=== PATIENT | female | born 1975 | race Caucasian/White ===

== ENCOUNTER 2018-10-18 08:57 | Outpatient (CLI) | payer OTHER ==
--- NOTE | 2018-10-18 10:08 | CT ---
CT OF THE ABDOMEN AND PELVIS WITHOUT CONTRAST: COMPARISON: None. HISTORY: Left-sided flank pain for 3 weeks. TECHNIQUE: Multiple contiguous axial images were obtained in a CT of the abdomen and pelvis without contrast. C oronal reformats were performed. FINDINGS: The liver, gallbladder, kidneys, adrenal glands, spleen, and pancreas are unremarkable. No free air, free fluid, or stranding changes are seen in the abdomen or pelvis. The large and small bowel are unremarkable. The appendix is normal. No abdominal or pelvic lymphade nopathy are seen. The patient is status post hysterectomy. Degenerative changes are seen in the spine. The visualized inferior thorax and abdominal wall soft t issues are unremarkable. IMPRESSION: No evidence of acute intraabdominal/pelvic abnormality. POS: [facility]
== END 2018-10-18 08:58 | disposition home or self-care (01) ==
LOC: BICCT 08:57
PROVIDERS: ATTEND Family Medicine
DX: M54.5 Low back pain (principal); R30.0 Dysuria; N30.01 Acute cystitis with hematuria
CPT/HCPCS: 74176

== ENCOUNTER 2021-11-10 09:14 | Outpatient (CLI) | payer OTHER | END 2021-11-10 09:15 | disposition home or self-care (01) | LOC: BICMAMMO 09:14 | PROVIDERS: ATTEND Obstetrics & Gynecology | DX: Z12.31 Encounter for screening mammogram for malignant neoplasm of breast (principal); Z80.3 Family history of malignant neoplasm of breast | CPT/HCPCS: 77063; 77067 ==